=== PATIENT | female | born 1990 | race Caucasian/White ===

== ENCOUNTER → 2018-06-10 | Outpatient (CLI) | payer BC ==
[~2018-06-10] MED LIST: ANTIBIOTIC; AUG875 PO; BACDS PO; BIS10S PR; BUTA-1 PO; CALC500T42 PO; CEP500 PO; CYCL10TA29 PO; DOCU-299 PO; DOXY-179 PO; EST5I IM ONLY; ETHI1TAB25 PO; ETON1VAG7; FLU20 PO; IBU200 PO; IBUP-1618 PO; IBUP600T22 PO; LOR5 PO; LOR5/325 PO; MED150I IM; MEDR150D IM; METH-543 PO; NIT100 PO; NO ROUTINE MEDS; NOR5/325 PO; NORE1TAB81 PO; NORG1TAB6 PO; OMEP-218 PO; ONDA4TAB PO; ONDA8TAB98 PO; PER PO; PHENA200 PO; PRE20 PO; TRA50 PO; [UNRECOGNIZED DRUG - CODE] PO
== END ==
LOC: LAB 15:19
PROVIDERS: ATTEND Obstetrics & Gynecology
DX: Z02.9 Encounter for administrative examinations, unspecified (principal)

== ENCOUNTER → 2018-06-11 | Outpatient (CLI) | payer BC ==
--- NOTE | 2018-06-11 22:55 | RADIOLOGY IMAGING REPORT ---
FACILITY: [facility] - [place] PATIENT NAME: Aureliano Cisneros : 1990 MR: [id number] V: [id number] EXAM DATE: ORDERING PHYSICIAN: CLYDE ROGER TECHNOLOGIST: Location: [facility] Patient: Aureliano Cisneros : 1990 Visit/Account:[id number] Date of Sevice: 06/11/2018 DEXA Scan 06/11/2018 2:23 PM HISTORY: group home use of depo provera Comparison: None available. LUMBAR SPINE: The bone mineral density (BMD) measured from L1-L4 correlates with a Z-score -0.7 and a T-score of -0 .8 which is within lower normal range as defined by the World Health Organization. The corresponding risk of fracture in the lumbar spine is increased less than 2 times compared with a young adult refe rence population. HIP: Bone mineral density (BMD) measured in the Left total hip region correlates with a Z-score -1.7 and a T-score of -1.8 which is moderately osteopenic as defined by the World Health Organization. The cor responding risk of fracture in the hip is increased 3-4 times compared with a young adult reference p opulation. Bone mineral density (BMD) measured in the Femoral Neck region measures 0.810 g/cm2. T-score is -1.6 . Impression: 1. Lumbar spine: Within lower normal range. 2. Left Total Hip: Moderate osteopenia. 3. Femoral Neck: Bone Mineral Density is 0.810 g/cm2. Moderate osteopenia. The next DEXA scan of this patient should include the following sites: L1-L4 and the left hip. FRAX? WHO Fracture Risk Assessment Tool link: <http://www.shef.ac.uk/FRAX/tool.jsp?locationValue=9> PLEASE NOTE: 1) The World Health Organization defines low BMD as follows: T-score Normal > -1 Osteopenia < -1 and > -2.5 Osteoporosis < -2.5 without fractures Established osteoporosis < -2.5 with fractures 2) In general, you may wish to consider: Diagnosis Treatment Follow-up DEXA Normal BMD Prevention 2-3 years Osteopenia Prevention/therapy 1-2 years Osteoporosis Therapy Yearly 3) Fracture risk estimated from the T-score is more accurate for vertebral fractures (often spontane ous) than for hip fractures. Report Dictated By: Zafar Babb MD at 06/11/2018 10:49 PM Report E-Signed By: Zafar Babb MD at 06/11/2018 10:50 PM WSN:[id number]
== END ==
LOC: RAD 06:56
PROVIDERS: ATTEND Obstetrics & Gynecology
DX: Z30.42 Encounter for surveillance of injectable contraceptive (principal); M85.88 Other specified disorders of bone density and structure, other site
CPT/HCPCS: 77080

== ENCOUNTER → 2018-06-11 | Outpatient (CLI) | payer BC, OTHER ==
--- NOTE | 2018-06-11 17:55 | RADIOLOGY IMAGING REPORT ---
FACILITY: [facility] - [place] PATIENT NAME: Aureliano Cisneros : 1990 MR: [id number] V: [id number] EXAM DATE: ORDERING PHYSICIAN: GLENYS MARI TECHNOLOGIST: Location: [facility] [place] Patient: Aurelaino Cisneros : 1990 Visit/Account:[id number] Date of Sevice: 06/11/2018 PELVIC INDICATION: Pain, COMPARISON: None Available FINDINGS: Uterus measures 4.9 x 2.6 x 4.1 cm and is homogeneous in echotexture. No mass is identified. Double wall endometrial stripe measures 2.1 mm and is homogeneous There is no free fluid in the cul-de-sac. Urinary bladder is empty. Pelvic vessels appear unremarkable on this examination. Right ovary measures 3.0 x 2.3 x 1.7 cm and shows normal blood flow and contains several small follic les. Left ovary measures 3.0 x 2.6 x 2.4 cm and shows normal blood flow and contains several small follicl es. IMPRESSION: 1. Pelvic ultrasound is within normal limits Report Dictated By: Maverick Kerr at 06/11/2018 5:47 PM Report E-Signed By: Maverick Kerr at 06/11/2018 5:50 PM WSN:[id number]
== END ==
LOC: US 01:21
PROVIDERS: ATTEND Physician Assistant
DX: R10.9 Unspecified abdominal pain (principal)
CPT/HCPCS: 76856; 87491; 87591